=== PATIENT | male | born 1975 | race Caucasian/White ===

== ENCOUNTER 2016-09-04 09:55 | Emergency (ER) | payer OTHER ==
[~2016-09-04] VITALS: Ht 180.3 cm; Wt 118.4 kg
[2016-09-04] MEDS ORDERED: NAPROSYN500 MG PO (11:16)
[2016-09-04 11:33] VITALS: BP 135/78
== END 2016-09-04 11:35 | disposition home or self-care (01) ==
LOC: EME 09:55
DX: S83.92XA Sprain of unspecified site of left knee, initial encounter (principal); X50.0XXA Overexertion from strenuous movement or load, initial encounter; Y93.E6 Activity, residential relocation; X50.3XXA Overexertion from repetitive movements, initial encounter; Y99.0 Civilian activity done for income or pay
CPT/HCPCS: 73564; 99281; 99283